=== PATIENT | male | born 1940 | race Caucasian/White ===

== ENCOUNTER 2017-10-29 18:26 | Observation (INO) | payer BC, OTHER ==
[2017-10-30 04:18] LABS: ADD MAN DIFF? NO
[2017-10-30 04:21] LABS: BASOPHILS % 0.3 % (0.0-2.0); HEMATOCRIT 42.1 % (42.0-52.0); HEMOGLOBIN 14.4 g/dl (14.0-18.0); LYMPHOCYTES # 1.5 10^3/ul (0.8-2.9); LYMPHOCYTES % 23.3 % (15.0-51.0); MEAN CORPUSCULAR HEMOGLOBIN 30.4 pg (29.0-33.0); MEAN CORPUSCULAR HGB CONC 34.2 g/dl (32.0-37.0); MONOCYTE # 0.9 10^3/ul (0.3-0.9); MONOCYTES % 13.5 % (0.0-11.0); NEUTROPHIL # 3.9 10^3/ul (1.6-7.5); NEUTROPHILS % 62.4 % (39.0-77.0); PLATELET COUNT 159 10^3/UL (140-415); RED BLOOD COUNT 4.73 10^6/ul (4.70-6.10); RED CELL DISTRIBUTION WIDTH 15.1 % (11.5-14.5)
[2017-10-30 04:21] LABS: WHITE BLOOD COUNT 6.3 10^3/ul (4.8-10.8)
[2017-10-30 04:57] LABS: ANION GAP 22 (8-16); BLOOD UREA NITROGEN 41 mg/dl (7-20); CALCIUM 8.9 mg/dl (8.4-10.2); CARBON DIOXIDE 17 mmol/L (21-31); CHLORIDE 110 mmol/L (97-110); CREATININE 4.24 mg/dl (0.61-1.24); GLUCOSE 89 mg/dl (70-220); POTASSIUM 4.6 mmol/L (3.5-5.1); SODIUM 144 mmol/L (135-144)
[2017-10-30 05:09] LABS: TROPONIN-I 0.055 ng/ml (0.00-0.12)
[2017-10-30] MEDS ORDERED: ACETAMINOPHEN 325 MG TAB PO ×2 (08:30→09:30)
[2017-10-30] MEDS ORDERED: ONDANSETRON 4 MG INJ IV ×2 (08:30→09:30)
[2017-10-30] MEDS ORDERED: NACL 0.9% 3 ML SYG IV (09:30)
[2017-10-30] MEDS ORDERED: BISACODYL 10 MG SUPP PR (09:30)
[2017-10-30] MEDS ORDERED: DOCUSATE SODIUM 100 MG CAP PO (09:30)
[2017-10-30] MEDS ORDERED: NITROGLYCERIN (SL) 0.4 MG TAB SL (09:30)
[2017-10-30] MEDS ORDERED: MAGNESIUM HYDROXIDE 30ML CUP PO (09:30)
[2017-10-30] MEDS: SOD CHLORIDE 0.9% 500 ML IV (09:49)
[2017-10-30] MEDS: SOD CHLORIDE 0.9% 1,000 ML IV ×2 (09:49→16:10)
[2017-10-30] MEDS: THYROID 60 MG TAB PO (10:39)
[2017-10-30 12:14] LABS: PHOSPHORUS 4.1 mg/dl (2.5-4.9)
[2017-10-30 13:42] LABS: CREATINE KINASE 109 IU/L (23-200)
[2017-10-30 13:55] LABS: CK INDEX 2.2; TROPONIN-I 0.051 ng/ml (0.00-0.12)
[2017-10-30 14:04] LABS: CK-MB 2.45 ng/ml (0.0-2.4)
[2017-10-30 14:21] LABS: FREE T4 (FREE THYROXINE) 1.93 ng/dl (0.78-2.44)
[2017-10-30 14:36] LABS: ANION GAP 21 (8-16); BLOOD UREA NITROGEN 51 mg/dl (7-20); CALCIUM 9.3 mg/dl (8.4-10.2); CARBON DIOXIDE 15 mmol/L (21-31); CHLORIDE 116 mmol/L (97-110); CREATININE 4.78 mg/dl (0.61-1.24); GLUCOSE 111 mg/dl (70-220); POTASSIUM 4.6 mmol/L (3.5-5.1); SODIUM 147 mmol/L (135-144)
[2017-10-30 14:42] LABS: THYROID STIMULATING HORMONE < 0.015 MIU/L (0.465-4.680)
[2017-10-30] MEDS: METOPROLOL 25 MG TAB PO (21:03)
[2017-10-30 22:27] LABS: CREATINE KINASE 138 IU/L (23-200)
[2017-10-30 22:40] LABS: CK INDEX 1.9; TROPONIN-I 0.052 ng/ml (0.00-0.12)
[2017-10-30 22:43] LABS: CK-MB 2.56 ng/ml (0.0-2.4)
[2017-10-31] MEDS: SOD CHLORIDE 0.9% 1,000 ML IV ×2 (00:46→09:16)
[2017-10-31 06:42] LABS: ADD MAN DIFF? NO
[2017-10-31 06:51] LABS: WHITE BLOOD COUNT 5.4 10^3/ul (4.8-10.8)
[2017-10-31 06:51] LABS: BASOPHILS % 0.4 % (0.0-2.0); HEMATOCRIT 39.8 % (42.0-52.0); HEMOGLOBIN 13.4 g/dl (14.0-18.0); LYMPHOCYTES # 1.6 10^3/ul (0.8-2.9); MEAN CORPUSCULAR HEMOGLOBIN 30.6 pg (29.0-33.0); MEAN CORPUSCULAR HGB CONC 33.7 g/dl (32.0-37.0); MEAN CORPUSCULAR VOLUME 90.9 fl (82.0-101.0); MEAN PLATELET VOLUME 10.8 fl (7.4-10.4); MONOCYTE # 0.7 10^3/ul (0.3-0.9); MONOCYTES % 12.5 % (0.0-11.0); NEUTROPHIL # 3.1 10^3/ul (1.6-7.5); NEUTROPHILS % 56.7 % (39.0-77.0); PLATELET COUNT 138 10^3/UL (140-415); POSITIVE DIFF @See below; RED BLOOD COUNT 4.38 10^6/ul (4.70-6.10); RED CELL DISTRIBUTION WIDTH 15.1 % (11.5-14.5)
[2017-10-31 07:31] LABS: ALANINE AMINOTRANSFERASE 36 IU/L (13-69); ALBUMIN 3.6 g/dl (3.3-4.9); ALKALINE PHOSPHATASE 105 IU/L (42-121); ANION GAP 16 (8-16); ASPARTATE AMINO TRANSFERASE 33 IU/L (15-46); BILIRUBIN,INDIRECT 0.3 mg/dl (0-1.1); BILIRUBIN,TOTAL 0.3 mg/dl (0.2-1.3); BLOOD UREA NITROGEN 46 mg/dl (7-20); CALCIUM 8.3 mg/dl (8.4-10.2); CARBON DIOXIDE 20 mmol/L (21-31); CHLORIDE 112 mmol/L (97-110); CREATININE 4.08 mg/dl (0.61-1.24); GLUCOSE 89 mg/dl (70-220); MAGNESIUM 1.9 mg/dl (1.7-2.5); POTASSIUM 4.5 mmol/L (3.5-5.1); SODIUM 143 mmol/L (135-144); TOTAL PROTEIN 7.2 g/dl (6.1-8.1)
[2017-10-31] MEDS: METOPROLOL 25 MG TAB PO (09:00)
[2017-10-31] MEDS: THYROID 60 MG TAB PO (09:32)
[2017-10-31] MEDS: MULTIVITAMINS THERAPEUTIC TAB PO (09:32)
[2017-10-31 13:07] LABS: ADD UMIC YES; UR ASCORBIC ACID NEGATIVE (NEGATIVE); UR BACTERIA FEW /HPF (NONE SEEN); UR BILIRUBIN (Dip) NEGATIVE (NEGATIVE); UR BLOOD (Dip) 1+ mg/dL (NEGATIVE); UR CLARITY CLEAR (CLEAR); UR COLOR YELLOW (YELLOW); UR GLUCOSE (Dip) 1+ mg/dL (NEGATIVE); UR KETONES (Dip) NEGATIVE (NEGATIVE); UR LEUKOCYTE ESTERASE (Dip) NEGATIVE Leu/ul (NEGATIVE); UR NITRITE (Dip) NEGATIVE (NEGATIVE); UR RBC 0 /HPF (0-5); UR SPECIFIC GRAVITY (Dip) 1.013 (1.003-1.030); UR TOTAL PROTEIN (Dip) NEGATIVE (NEGATIVE); UR UROBILINOGEN (Dip) NEGATIVE (NEGATIVE); UR WBC 2 /HPF (0-5)
[2017-10-31 13:32] LABS: AMPHETAMINE/METHAMPHETAMINE Negative (NEGATIVE); BARBITURATES Negative (NEGATIVE); BENZODIAZEPINES Negative (NEGATIVE); CANNABINOIDS Negative (NEGATIVE); COCAINE Negative (NEGATIVE); OPIATES Negative (NEGATIVE)
[2017-10-31 13:43] LABS: SODIUM,URINE RANDOM 73 mmol/L (30-90)
[2017-10-31 13:43] LABS: CREATININE,URINE RANDOM 118.05 mg/dl (20-370)
[2017-10-31] MEDS: DEXTROSE 5%-0.45% NACL 1,000 ML IV (20:28)
[2017-10-31] MEDS: CITRIC ACID/SODIUM CITRATE 15 ML CUP PO (22:31)
[2017-11-01 06:09] LABS: ADD MAN DIFF? NO
[2017-11-01 06:13] LABS: WHITE BLOOD COUNT 4.5 10^3/ul (4.8-10.8)
[2017-11-01 06:13] LABS: BASOPHILS % 0.2 % (0.0-2.0); HEMOGLOBIN 12.6 g/dl (14.0-18.0); LYMPHOCYTES # 1.4 10^3/ul (0.8-2.9); LYMPHOCYTES % 31.8 % (15.0-51.0); MEAN CORPUSCULAR HEMOGLOBIN 30.2 pg (29.0-33.0); MEAN CORPUSCULAR HGB CONC 33.2 g/dl (32.0-37.0); MEAN CORPUSCULAR VOLUME 91.1 fl (82.0-101.0); MEAN PLATELET VOLUME 10.9 fl (7.4-10.4); MONOCYTE # 0.6 10^3/ul (0.3-0.9); MONOCYTES % 12.7 % (0.0-11.0); NEUTROPHIL # 2.5 10^3/ul (1.6-7.5); NEUTROPHILS % 54.9 % (39.0-77.0); PLATELET COUNT 139 10^3/UL (140-415); POSITIVE DIFF @See below; RED BLOOD COUNT 4.17 10^6/ul (4.70-6.10); RED CELL DISTRIBUTION WIDTH 15.1 % (11.5-14.5)
[2017-11-01 06:52] LABS: ANION GAP 17 (8-16); BLOOD UREA NITROGEN 40 mg/dl (7-20); CALCIUM 7.8 mg/dl (8.4-10.2); CARBON DIOXIDE 20 mmol/L (21-31); CHLORIDE 111 mmol/L (97-110); CREATININE 3.75 mg/dl (0.61-1.24); GLUCOSE 89 mg/dl (70-220); POTASSIUM 4.2 mmol/L (3.5-5.1); SODIUM 144 mmol/L (135-144)
[2017-11-01 06:53] LABS: MAGNESIUM 1.9 mg/dl (1.7-2.5)
[2017-11-01 06:53] LABS: PHOSPHORUS 3.4 mg/dl (2.5-4.9)
[2017-11-01] MEDS: CITRIC ACID/SODIUM CITRATE 15 ML CUP PO (09:22)
[2017-11-01] MEDS: THYROID 60 MG TAB PO (09:22)
[2017-11-01] MEDS: MULTIVITAMINS THERAPEUTIC TAB PO (09:22)
[2017-11-01] MEDS: DEXTROSE 5%-0.45% NACL 1,000 ML IV (11:10)
[2017-11-01] MEDS: METOPROLOL 25 MG TAB PO (11:14)
== END 2017-11-01 15:00 | disposition home or self-care (01) ==
LOC: E/R 18:26 → MS3 10-30 08:06
DX: N17.9 Acute kidney failure, unspecified (principal); N18.3 Chronic kidney disease, stage 3 (moderate); I12.9 Hypertensive chronic kidney disease with stage 1 through stage 4 chronic kidney disease, or unspecified chronic kidney disease; E03.9 Hypothyroidism, unspecified; I51.7 Cardiomegaly
CPT/HCPCS: 71045; 71046; 76775; 80048; 80053; 80307; 81001; 81003; 82550; 82553; 83735; 84100; 84155; 84300; 84439; 84443; 84484; 84560; 85025; 87086; 89190; 99285-25